=== PATIENT | male | born 1955 | race Caucasian/White ===

== ENCOUNTER 2020-11-26 09:18 | Day surgery (SDC) | payer OTHER, SELFPAY ==
[2020-11-05 08:39] VITALS: BMI 32.0
[2020-11-26] VITALS (9 sets, daily range): BP systolic 80–151; BP diastolic 51–96; PULSE 66–97; RESP 16–18; TEMP 36.2–37.2; O2SAT 93–99; BMI 31.4
--- NOTE | 2020-11-26 09:37 | PCM.HP.BLA ---
History and Physical Date of Admission: 11/26/20 Date of Service: 11/05/20 Intake Vital Signs 11/05/20 08:39 Height 5 ft 9.5 in Weight: 220 lb BMI 32.0 BP 132/88 H Blood Pressure Location Rt brachial Position Sitting Respiration 16 Intake Visit Reasons: C-Scope Chief Complaint: c-scope Radiographer Required: No Is patient in pain?: No Allergies No Known Allergies Allergy (Unverified 11/05/20 08:39) Medications cholecalciferol (vitamin D3) 50 mcg (2,000 unit) capsule 50 mcg PO DAILY 11/05/20 [History Confirmed 11/05/20] glipizide 10 mg tablet 10 mg PO BID 11/05/20 [History Confirmed 11/05/20] levothyroxine 137 mcg capsule 137 mcg PO DAILY 11/05/20 [History Confirmed 11/05/20] metformin 1,000 mg tablet 1,000 mg PO BID 11/05/20 [History Confirmed 11/05/20] multivitamin 1 tab PO DAILY 11/05/20 [History Confirmed 11/05/20] omega-3 fatty acids 1,000 mg capsule 1,000 mg PO BID 11/05/20 [History Confirmed 11/05/20] simvastatin 40 mg tablet 40 mg PO DAILY 11/05/20 [History Confirmed 11/05/20] valsartan 160 mg tablet 160 mg PO DAILY 11/05/20 [History Confirmed 11/05/20] [facility] Medical History (Updated 11/05/20 @ 09:[address] Parul Duke MD) Diabetes High cholesterol HTN (hypertension) Hypothyroid Surgical History (Updated 11/05/20 @ 08:38 by Katarina Goddard) H/O spinal fusion S/P bilateral inguinal hernia repair S/P scrotal varicocelectomy Family History (Updated 11/05/20 @ 08:38 by Katarina Goddard) Brother CVA (cerebral vascular accident) Sister Diabetes Social History (Updated 11/05/20 @ 08:39 by Katarina Goddard) Smoking Status: Former smoker alcohol intake: never HPI HPI HPI: JUAN BORJA, is a 65 M who presents to the office today for screening colonoscopy. Patient's last colonoscopy was about 13 years ago normal per patient. Patient has been having some issues with constipation for several years. Patient states he only goes about twice a week. Patient denies any family history of colon cancer denies any chronic abdominal pain/nausea/vomiting/reflux. Patient does state he drinks plenty of water but does not eat enough fiber. ROS General General: No weight change, appetite, fatigue, colon cancer, breast cancer or weakness HEENT HEENT: No difficulty swallowing, eye injury, eye surgery, swollen glands or hoarseness Endo Endocrine: Yes diabetes mellitus; No thyroid disease, thyroid cancer, Hair loss, heat intolerance or cold intolerance Skin Skin: Yes changing moles; No rash Breast Breast: No left breast lump, right breast lump, nipple discharge, breast pain, abnormal mammogram, abnormal US or breast enlargement Musc Musculoskeletal: No back problems, arthritis, rheumatoid arthritis, gout or joint pain Cardio Cardiovascular: Yes high blood pressure; No murmur, pacemaker, heart disease, atrial fibrillation, heart attack, heart stent, palpitations, shortness of breat with exertion or chest pain Psych Psychiatric: No depression, anxiety or hearing voices Resp Respiratory: No shortness of breath, Yes sleep apnea, No cough, No COPD, Yes asthma, No emphysema and No wheezing Gastro Gastrointestinal: No abdominal pain, No nausea or vomiting, No diarrhea, No constipation, No blood in stool, No acid reflux, No hemorrhoids, No ulcers, No gallbladder problem and No black,tarry stools Kurtis Hematologic: No blood thinners, No blood disorders, No bleeding, No anemia and No blood clots Neuro Neurologic: No system reviewed and no additional complaints, except as documented, No as per HPI, No abnormal gait, No abnormal hearing, No abnormal movements, No abnormal speech, No behavioral changes, No burning sensations, No confusion, No convulsions, No disequilibrium, No dizziness, No localized weakness, No frequent falls, No headache(s), No lack of coordination, No loss of vision, No memory loss, No numbness, No other visual disturbances, No radicular pain, No restless legs, No sensory deficit, No syncope, No tingling, No tremor(s), No weakness and No other Exam Const General: cooperative, healthy appearing, comfortable and no acute distress Neck Neck: normal visual inspection Resp Effort & Inspection: normal respiratory effort Cardio Rate: regular rate GI Inspection: non-distended Palpation: soft and nontender Skin General: no rashes or lesions noted Neuro General: patient oriented x3 Psych Affect: normal affect COVID (Procedure Consent) Procedure Criteria Procedure Criteria: Yes Elective The surgeon/proceduralist and patient have discussed in detail the risk of exposure to and/or potential harm posed by the COVID-19 virus with having a surgery/procedure at this time versus the risk of delaying the surgery/procedure. It is not possible to know either the risk of delaying the surgery or procedure or chance of getting an infection with perfect accuracy, but a joint decision was made between the patient and the surgeon/proceduralist to proceed at this time with the scheduled surgery/procedure as indicated on the consent form. Assessment and Plan Assessment and Plan (1) Constipation: Status: Acute Plan - Dr. Parul Duke MD: Did give patient handouts about increasing his fiber in his diet. As well as continuing to drink plenty of water. (2) Screening for colon cancer: Status: Acute Plan - Dr. Parul Duke MD: I have discussed the above with the patient. I have offered the patient colonoscopy for evaluation. I have explained the risks/benefits of the procedure and described the procedure. I have discussed the risks with the patient, including but not limited to: infection, bleeding, perforation of the GI tract requiring emergency surgery, inability to complete the procedure, injury to any internal organs, complications of anesthesia, etc. - the patient understands and agrees to proceed. I have answered all the patient's questions to the patient's satisfaction and the patient has no further questions. The patient has been given instructions for the colon cleansing preparation. Patient was given moviprep [facility]. Depending on patient's bowel movement prior to colonoscopy if patient is having problems every 2 to 3 days would plan to have him do 2 days of clears and then the moviprep the day before the procedure; if patient is going more than every 3 days before bowel movement would recommend 2 days of clears with magnesium citrate on the first day and the moviprep on the second day. Parul Duke M.D. Pager: [phone] [facility] [address] [place] [address], [address] [place] [address] Office: [phone] Plan Details Follow Up: will schedule colonoscopy Coding Level of Care Code Off vis,new,level 3 Diagnoses Constipation K59.00 Screening for colon cancer Z12.11 11/05/20 0940<Electronically signed by Parul Duke MD>Date Parul Duke MD
[2020-11-26] MEDS: Lactated Ringers 1,000 ML 100 ML IV (10:19)
--- NOTE | 2020-11-26 10:30 | COLBX_PTH ---
PATIENT: JUAN BORJA LOC: EN U#:[id number] AGE/SX: 65/M ROOM: RE11/26/[address]: Dr. Parul Duke MD : 1955 BED: DIS: 11/26/2020 SPEC #: [id number] RECD: 11/26/20 11:00 STATUS: JAIMEE KILLIAN #: [id number] JT: 11/26/20 10:[address]: Parul Duke DEPT: SURGICAL PATHOLOGY RECD BY: Uzma He ENTERED: 11/26/20 13:52 SP TYPE: COLON BX OTHR DR: Dr. Elijah Kumari MD Tissues: Descending colon Procedures: Surgery Specimen Level IV HEADER OPERATION: Colonoscopy (MAC) PRE-OP DIAGNOSIS: Constipation, screening for colon cancer TISSUE SUBMITTED: Descending colon polyp biopsy MICROSCOPIC DIAGNOSIS Descending colon polyp, biopsy: Polypoid fragment of benign colonic mucosa. See comment. AM:teofilo 11/29/2020 COMMENT Neither hyperplastic nor adenomatous change is identified. Clinical correlation is suggested. MICROSCOPIC DESCRIPTION Slides are reviewed. GROSS DESCRIPTION Received in fixative is one container labeled with the patient's name and designated descending colon polyp biopsy. The specimen consists of one irregular fragment of light garcia soft tissue that measures 0.3 x 0.3 x 0.1 cm. The specimen is totally submitted in one cassette. / SJ:teofilo 11/26/20 TC:5 CPT: 31279
--- NOTE | 2020-11-26 10:52 | OP.CCLET_ITS ---
11/26/2020 Elijah Kumari Re : Colonoscopy procedure for Toribio Medinar Quoc This procedure was performed on Thursday, November 26, 2020. My impressions and recommendations are as follows: Impressions : - Hemorrhoids found on perianal exam. - Non-bleeding internal hemorrhoids. - One less than 5 mm polyp in the descending colon, removed with a cold biopsy forceps. Resected and retrieved. - The examination was otherwise normal. Recommendations : - Discharge patient to home. - Resume previous diet. - Continue present medications. - Await pathology results. - Repeat colonoscopy in 5 years for surveillance based on pathology results. My findings are described in the full procedure note, which is enclosed. If I can be of further assistance, please feel free to contact me at Doctor phone number(s): , Work: . Sincerely, MD Parul Akbar MD 11/26/2020 10:51:52 AM This report has been signed electronically.
--- NOTE | 2020-11-26 10:52 | OP.COLON_ITS ---
Patient Name: Toribio Contreras Procedure Date: 11/26/2020 9:45 AM Date of : 1955 Age: 65 Procedure: Colonoscopy Indications: Constipation Providers: Parul Duke MD Medicines: Monitored Anesthesia Care Patient Profile: This is a 65 year old male. Last Colonoscopy: more than 10 years ago. Complications: No immediate complications. Procedure: Pre-Anesthesia Assessment: - Prior to the procedure, a History and Physical was performed, and patient medications and allergies were reviewed. The patient's tolerance of previous anesthesia was also reviewed. The risks and benefits of the procedure and the sedation options and risks were discussed with the patient. All questions were answered, and informed consent was obtained. Prior Anticoagulants: The patient has taken no previous anticoagulant or antiplatelet agents. ASA Grade Assessment: Per anesthesia. After reviewing the risks and benefits, the patient was deemed in satisfactory condition to undergo the procedure. After I obtained informed consent, the scope was passed under direct vision. Throughout the procedure, the patient's blood pressure, pulse, and oxygen saturations were monitored continuously. The pediatric colonoscope was introduced through the anus and advanced to the cecum, identified by the appendiceal orifice, ileocecal valve and palpation. The colonoscopy was performed without difficulty. The patient tolerated the procedure well. The quality of the bowel preparation was good. Scope In: 10:19:41 AM Scope Withdrawal Time 0 hours 13 minutes 24 seconds Scope Out: 10:47:38 AM Total Procedure Duration Time 0 hours 27 minutes 57 seconds Findings: Hemorrhoids were found on perianal exam. Non-bleeding internal hemorrhoids were found. The hemorrhoids were Grade I (internal hemorrhoids that do not prolapse). A less than 5 mm polyp was found in the descending colon. The polyp was sessile. The polyp was removed with a cold biopsy forceps. Resection and retrieval were complete. The exam was otherwise without abnormality. Impression: - Hemorrhoids found on perianal exam. - Non-bleeding internal hemorrhoids. - One less than 5 mm polyp in the descending colon, removed with a cold biopsy forceps. Resected and retrieved. - The examination was otherwise normal. Recommendation: - Discharge patient to home. - Resume previous diet. - Continue present medications. - Await pathology results. - Repeat colonoscopy in 5 years for surveillance based on pathology results. Procedure Code(s): --- Professional --- 81415, Colonoscopy, flexible; with biopsy, single or multiple Diagnosis Code(s): --- Professional --- K64.0, First degree hemorrhoids D12.4, Benign neoplasm of descending colon K59.00, Constipation, unspecified CPT copyright 2017 [employer]. All rights reserved. The codes documented in this report are preliminary and upon stress analyst review may be revised to meet current compliance requirements. MD Parul Akbar MD 11/26/2020 10:51:52 AM This report has been signed electronically. Number of Addenda: 0 Note Initiated On: 11/26/2020 9:45 AM
[2020-11-26 11:01] LABS: Bedside Glucose 143 mg/dL (70-110)
== END 2020-11-26 12:51 ==
LOC: EN 09:20 → AC 09:20
PROVIDERS: PCP Family Medicine; Referring Provider Family Medicine; Visit Provider Surgery
PROC: 0DJD8ZZ Inspection of Lower Intestinal Tract, Via Natural or Artificial Opening Endoscopic (ICD-10-PCS; CPT 45378; principal; 2020-11-26 10:25)
DX: Z12.11 Encounter for screening for malignant neoplasm of colon (principal); K63.5 Polyp of colon; K64.0 First degree hemorrhoids; I10 Essential (primary) hypertension; E11.9 Type 2 diabetes mellitus without complications; E78.00 Pure hypercholesterolemia, unspecified; E03.9 Hypothyroidism, unspecified; G47.30 Sleep apnea, unspecified; J45.909 Unspecified asthma, uncomplicated; Z87.442 Personal history of urinary calculi; Z79.84 Long term (current) use of oral hypoglycemic drugs; Z79.899 Other long term (current) drug therapy; Z87.891 Personal history of nicotine dependence
CPT/HCPCS: 45378; 82962; 88305; J7120; J2405